=== PATIENT | female | born 2000 | race African-American/Black ===

== ENCOUNTER 2025-05-10 21:47 | Emergency (ER) | payer OTHER ==
[~2025-05-10] VITALS: Ht 165.1 cm; Wt 85.6 kg
[2025-05-10 21:53] VITALS: O2SAT 98
[2025-05-10] MEDS ORDERED: CYCL10TA21 MT (22:54)
[2025-05-10] MEDS ORDERED: NAPR-1176 MT (22:54)
[2025-05-10] MEDS: CYCLOBENZAPRINE 10MG TABLET PO ONE (23:15)
[2025-05-10] MEDS: KETOROLAC 30MG/ML VIAL IM ONE (23:20)
[2025-05-10 23:23] VITALS: BP 117/53; PULSE 79; RESP 18; TEMP 36.8; O2SAT 98
== END 2025-05-10 23:24 | disposition home or self-care (01) ==
LOC: ER 21:47
DX: S09.90XA Unspecified injury of head, initial encounter (principal); M54.50 Low back pain, unspecified; Z79.899 Other long term (current) drug therapy; Z98.890 Other specified postprocedural states; V49.40XA Driver injured in collision with unspecified motor vehicles in traffic accident, initial encounter; Y93.89 Activity, other specified; Y92.89 Other specified places as the place of occurrence of the external cause; Y99.8 Other external cause status
CPT/HCPCS: 99283; 81025; 96372; J1885